=== PATIENT | female | born 1950 | race Caucasian/White ===

== ENCOUNTER 2016-06-30 17:44 | Observation (INO) | payer OTHER ==
[~2016-06-30] VITALS: Ht 170.2 cm; Wt 63.4 kg
[~2016-06-30 17:44] MED LIST: ASPIR-LOW81 MG PO; CENTRUM SILVER1 EAC3 PO; COLACE PO; DEXAMETHASONE4 MG PO; HYDROCODON-ACE1 EAC7 PO; OXYCODONE HCL10 MG PO; PEPCID20 MG PO; PREDNISONE10 MG PO; SODIUM CHLORIDE BOTH NARES; TYLENOL EXTRA500 MG PO; TYLENOL REGULA325 MG PO; VITAMIN D2000 INTUN PO; VITAMIN D22000 UNIT PO; VITAMIN D400 UNIT PO
[2016-06-30 19:35] LABS: HEMATOCRIT 38.3 % (36.0-46.0); MCH 28.8 PG (29.0-34.0); MCHC 33.4 G/DL (30.0-36.0); MCV 86.3 FL (83-99); MEAN PLAT.VOLUME 10.6 uM^3 (9.5-12.4); PLATELET COUNT 183 K/uL (156-360); RBC DIS.WIDTH-CV 12.8 % (11.8-14.6); RBC DIS.WIDTH-SD 39.1 % (39-53); RED BLOOD COUNT 4.44 M/uL (3.80-5.20); WHITE BLOOD COUNT 6.9 K/uL (4.1-10.2)
[2016-06-30 19:47] LABS: CHLORIDE 109 mEq/L (99-109); POTASSIUM 3.9 mEq/L (3.7-5.4); SODIUM 142 mEq/L (136-147)
[2016-06-30 19:48] LABS: GLUCOSE 97 mg/dL (70-99)
[2016-06-30 19:50] LABS: ANION GAP 9 MEQ/L (2-14)
[2016-06-30 19:52] LABS: GFR ESTIMATE (CALCULATED) 59 mL/min/
[2016-06-30 19:53] LABS: UREA NITROGEN (BUN) 24 mg/dL (9-23)
[2016-06-30 19:57] LABS: TROP-I INTERPRETATION NEGATIVE; TROPONIN-I < 0.01 ng/mL (0.0-0.30)
[2016-06-30] MEDS ORDERED: CENTRUM SILVER1 EAC4 PO (20:55)
[2016-06-30] MEDS ORDERED: OYSTERCAL-D 501 EACH PO (21:01)
[2016-06-30] MEDS ORDERED: OMEPRAZOLE20 MG PO (21:01)
[2016-06-30] MEDS ORDERED: MOBIC15 MG PO (21:02)
[2016-06-30 23:34] LABS: EOSINOPHIL (%) 1.9 % (0-5); EOSINOPHIL COUNT 0.1 K/uL (0-0.3); IMMATURE GRANULOCYTE (%) 0.1 % (0.0-0.7); MONOCYTE (%) 5.2 % (3-12); MONOCYTE COUNT 0.4 K/uL (0-0.8); NEUTROPHIL (%) 63.1 % (45-76); NEUTROPHIL COUNT 4.2 K/uL (1.8-6.4)
[2016-07-01 00:53] VITALS: BP 143/72
[2016-07-01 07:38] VITALS: BP 14/67; BP 144/67
[2016-07-01 08:24] LABS: TROP-I INTERPRETATION NEGATIVE; TROPONIN-I < 0.01 ng/mL (0.0-0.30)
[2016-07-01] MEDS ORDERED: BENADRYL25 MG PO (10:17)
[2016-07-01] MEDS ORDERED: PREDNISONE20 MG PO (10:17)
[2016-07-01] MEDS ORDERED: ZANTAC150 MG PO (10:17)
[2016-07-01 11:50] LABS: TROP-I INTERPRETATION NEGATIVE; TROPONIN-I < 0.01 ng/mL (0.0-0.30)
[2016-07-01 12:12] VITALS: BP 135/65
== END 2016-07-01 13:48 | disposition home or self-care (01) ==
LOC: EME 17:44 → EDOF 21:23 → 5WEST 21:23
PROVIDERS: Emergency Medicine; Hospitalist; Physician Assistant Medical
DX: R07.89 Other chest pain (principal); R21 Rash and other nonspecific skin eruption; R00.1 Bradycardia, unspecified; I45.10 Unspecified right bundle-branch block; I44.4 Left anterior fascicular block; L29.9 Pruritus, unspecified; R10.9 Unspecified abdominal pain; M54.2 Cervicalgia; M79.603 Pain in arm, unspecified; K21.9 Gastro-esophageal reflux disease without esophagitis
CPT/HCPCS: 71020; 80048; 83880; 84484; 85025; 85027; 93005; 99281; 99285; G0378; J1100; J7512; S0028

== ENCOUNTER 2016-07-31 07:58 | Emergency (ER) | payer OTHER ==
[~2016-07-31] VITALS: Ht 170.2 cm; Wt 63.0 kg
[~2016-07-31 07:58] MED LIST changes: +BENADRYL25 MG PO; +CENTRUM SILVER1 EAC4 PO; +MOBIC15 MG PO; +OMEPRAZOLE20 MG PO; +OYSTERCAL-D 501 EACH PO; +PREDNISONE20 MG PO; +ZANTAC150 MG PO
[2016-07-31] MEDS ORDERED: AUGMENTIN875 MG PO (08:33)
[2016-07-31 09:52] VITALS: BP 160/51
== END 2016-07-31 09:57 | disposition home or self-care (01) ==
LOC: EME 07:58
DX: S61.431A Puncture wound without foreign body of right hand, initial encounter (principal); W55.01XA Bitten by cat, initial encounter
CPT/HCPCS: 73130; 99281; 99283